=== PATIENT | female | born 1990 | race Caucasian/White ===

== ENCOUNTER 2017-06-28 17:50 | Emergency (ER) | payer SELFPAY ==
[~2017-06-28] VITALS: Ht 152.4 cm; Wt 102.5 kg
[2017-06-28 20:29] VITALS: BP 143/72
== END 2017-06-28 20:29 | disposition home or self-care (01) ==
LOC: ED 17:50
DX: S39.012A Strain of muscle, fascia and tendon of lower back, initial encounter (principal); G89.29 Other chronic pain; X58.XXXA Exposure to other specified factors, initial encounter; Y93.89 Activity, other specified; Y92.89 Other specified places as the place of occurrence of the external cause; Y99.8 Other external cause status
CPT/HCPCS: J1885; J3010